=== PATIENT | female | born 1950 | race Caucasian/White ===

== ENCOUNTER → 2017-08-13 | Outpatient (CLI) | payer MEDICARE, OTHER ==
[~2017-08-13] MED LIST: ALLOPURINOL; ASPI81CH PO; ATOR10 PO; CELE100 PO; Excedrin Extra1 EACH PO; FAMO20 PO; GABA100 PO; INDO50 PO; MELA3 PO; METO25ER; NIAC500ER PO; TRAM50 PO; VALS80 PO; [UNRECOGNIZED DRUG - REMARK]
== END ==
LOC: LAB SHORT 14:43 → PLD 14:43
DX: D22.39 Melanocytic nevi of other parts of face (principal)
CPT/HCPCS: 88305

== ENCOUNTER → 2017-08-23 | Outpatient (CLI) | payer MEDICARE, OTHER ==
[2017-08-23 15:40] LABS: Albumin, Blood 3.9 g/dL (3.4-5.0); Albumin/Globulin Ratio 1.1 (0.8-1.8); Bilirubin, Total 0.9 mg/dL (0.1-1.0); Bun/Creatinine Ratio 23.1 (12.0-20.0); Calcium, Blood 9.5 mg/dL (8.5-10.1); Creatinine, Blood 1.3 mg/dL (0.40-1.00); Globulin, Blood 3.5 g/dL (2.2-4.0); Potassium, Blood 3.6 mmol/L (3.5-5.5); Total Protein, Blood 7.4 g/dL (6.4-8.2)
== END ==
LOC: LAB EV 15:25 → LAB SHORT 15:25
PROVIDERS: Physician Assistant
DX: M45.9 Ankylosing spondylitis of unspecified sites in spine (principal)
CPT/HCPCS: 80053

== ENCOUNTER → 2018-08-13 | Outpatient (CLI) | payer MEDICARE, OTHER ==
[~2018-08-13] MED LIST changes: +ALBU90OI INH; +ALLO300 PO; +DICL75ER PO; +Estrace Vagin42.5 GM VAG; +Multivitamin1 EAC1 PO; +OLMSRTN-AMLDPN1 EAC3 PO; +TUMERIC PO; +UBID10
== END | disposition home or self-care (01) ==
LOC: PLD 14:09 → LAB SHORT 14:09
DX: D22.5 Melanocytic nevi of trunk (principal)
CPT/HCPCS: 88305

== ENCOUNTER 2019-10-05 22:19 | Emergency (ER) | payer MEDICARE, OTHER ==
[~2019-10-05] VITALS: Ht 162.6 cm; Wt 80.3 kg
[2019-10-05 22:35] LABS: BASOPHILS ABSOLUTE AUTO 0.04 K/mm3 (0.00-0.23); BASOPHILS PERCENT AUTO 1 % (0-2); EOSINOPHILS ABSOLUTE AUTO 0.19 K/mm3 (0.00-0.68); EOSINOPHILS PERCENT AUTO 2 % (0-6); Hematocrit 35.8 % (33.0-51.0); Hemoglobin 11.9 g/dL (11.5-16.0); IMMATURE GRAN ABSOLUTE AUTO 0.02 K/mm3 (0.00-0.10); IMMATURE GRAN PERCENT AUTO 0 % (0-1); LYMPHOCYTES ABSOLUTE AUTO 2.59 K/mm3 (0.84-5.20); LYMPHOCYTES PERCENT AUTO 32 % (21-46); MONOCYTES ABSOLUTE AUTO 1.04 K/mm3 (0.16-1.47); MONOCYTES PERCENT AUTO 13 % (4-13); Mean Corpuscular HGB 31.6 pg (26.0-34.0); Mean Corpuscular HGB Conc 33.2 g/dL (31.5-36.5); Mean Corpuscular Volume 95 fL (80-100); Mean Platelet Volume 9.1 fL (9.1-12.4); NEUTROPHILS ABSOLUTE AUTO 4.17 K/mm3 (1.96-9.15); NEUTROPHILS PERCENT AUTO 52 % (41-73); Platelet Count 278 K/mm3 (150-400); RDW Coefficient Variation 12.7 % (11.7-14.2); RDW Standard Deviation 43.8 fL (35.1-46.3); Red Blood Cell Count 3.76 M/mm3 (3.80-5.20); White Blood Cell Count 8.05 K/mm3 (4.00-11.30)
[2019-10-05 22:56] LABS: Alanine Aminotransfer (ALT/SGP 63 U/L (12-78); Albumin/Globulin Ratio 1.2 (0.8-1.8); Alk Phos 77 U/L (50-136); Anion Gap 6 mmol/L (6-16); Aspartate Aminotrans (AST/SGOT 53 U/L (12-37); Bilirubin, Total 0.6 mg/dL (0.1-1.0); Blood Urea Nitrogen 18 mg/dL (8-24); Bun/Creatinine Ratio 13.6 (12.0-20.0); CO2, Blood 27 mmol/L (21-32); Calcium, Blood 8.6 mg/dL (8.5-10.1); Chloride, Blood 102 mmol/L (98-108); Creatinine, Blood 1.32 mg/dL (0.40-1.00); Globulin, Blood 3.3 g/dL (2.2-4.0); Glomerular Filtration Rate 42 (60-); Glucose, Blood 98 mg/dL (70-99); Sodium, Blood 135 mmol/L (136-145); Total Protein, Blood 7.3 g/dL (6.4-8.2); Troponin I <0.015 ng/mL (0.000-0.040)
== END 2019-10-06 00:30 | disposition home or self-care (01) ==
LOC: ER 22:19
PROVIDERS: Emergency Medicine
DX: I47.1 Supraventricular tachycardia (principal); Z88.8 Allergy status to other drugs, medicaments and biological substances; Z79.899 Other long term (current) drug therapy; I10 Essential (primary) hypertension; E78.5 Hyperlipidemia, unspecified; K21.9 Gastro-esophageal reflux disease without esophagitis; M10.9 Gout, unspecified; J45.909 Unspecified asthma, uncomplicated
CPT/HCPCS: 36415; 71045; 80053; 84484; 85025; 93005; 93010; 96360; 99285-25; J7030

== ENCOUNTER 2019-11-05 07:16 | Day surgery (SDC) | payer MEDICARE, OTHER ==
--- NOTE | 2019-11-05 08:57 | NUR ---
DISCHARGE SUMMARY Patient up to Ambulate independently. Gait steady. Discharge instructions reviewed with patient. Patient verbalizes understanding. Copy given to patient to take home. IV DC'D. PT DECLINED WC AND AMBULATED INDEPENDENTLY OUT FOR RIDE HOME WITH FRIEND. VEE PO JUICE.
== END 2019-11-05 22:38 | disposition home or self-care (01) ==
LOC: ORD 07:16 → CT 07:16 → ORD 07:30 → CT 08:00 → ORD 22:38
DX: I20.8 Other forms of angina pectoris (principal); R06.02 Shortness of breath; M45.9 Ankylosing spondylitis of unspecified sites in spine; I10 Essential (primary) hypertension; E78.00 Pure hypercholesterolemia, unspecified; Z88.8 Allergy status to other drugs, medicaments and biological substances; Z79.899 Other long term (current) drug therapy
CPT/HCPCS: 75574; Q9967

== ENCOUNTER → 2019-11-19 | Outpatient (CLI) | payer MEDICARE, OTHER | END | disposition home or self-care (01) | LOC: LAB EV 12:45 → LAB SHORT 12:45 | DX: J02.9 Acute pharyngitis, unspecified (principal); Z20.828 Contact with and (suspected) exposure to other viral communicable diseases | CPT/HCPCS: 87081; U0003 ==

== ENCOUNTER 2020-05-15 13:22 | Day surgery (SDC) | payer MEDICARE, OTHER ==
[~2020-05-15] VITALS: Ht 162.6 cm; Wt 78.6 kg
[~2020-05-15 13:22] MED LIST changes: +ACET325 PO; +BIOTIN1 MG; +COQ-10100 MG PO; +ERGO400; +FISH OIL 1,2001 EAC7; +Fibercon625 MG PO; +HYDR1TAB94 PO; +HYDSUL200 PO; +MAGNESIUM OXID500 MG; +MULTIPLE VITAM1 EACH PO; +NEURONTIN600 MG PO; +OLME20 PO; +TOPROL XL25 MG PO; +TUMERIC; +Ventolin/Prove6.7 GM INH
--- NOTE | 2020-05-15 13:54 | NUR ---
05/15/20 1354 ESPERANZA BALES ONE ATTEMPT BY VERNA IN UNSUCCESFUL MISSED ONE ATTEMPT BY RN IN UNSUCCESSFUL MISSED
== END 2020-05-15 15:44 | disposition home or self-care (01) ==
LOC: ORSCSDS 13:22
PROVIDERS: Internal Medicine Gastroenterology
PROC: 0DB98ZX Excision of Duodenum, Via Natural or Artificial Opening Endoscopic, Diagnostic (ICD-10-PCS; principal; 2020-05-15 14:30)
PROC: 0DB78ZX Excision of Stomach, Pylorus, Via Natural or Artificial Opening Endoscopic, Diagnostic (ICD-10-PCS; principal; 2020-05-15 14:30)
DX: R10.13 Epigastric pain (principal); K29.70 Gastritis, unspecified, without bleeding; I10 Essential (primary) hypertension; N18.9 Chronic kidney disease, unspecified; M06.9 Rheumatoid arthritis, unspecified; E78.5 Hyperlipidemia, unspecified; K76.0 Fatty (change of) liver, not elsewhere classified; Z79.899 Other long term (current) drug therapy
CPT/HCPCS: 87081; 88305; 88342; J2704; J7120

== ENCOUNTER 2021-08-14 13:07 | Day surgery (SDC) | payer MEDICARE, OTHER ==
[~2021-08-14] VITALS: Ht 162.6 cm; Wt 82.5 kg
--- NOTE | 2021-08-14 13:42 | NUR ---
08/14/21 1342 Mary Raza TETRACAINE ADMINISTERED AT 1322, PLEDGETT 1325 BY [facility].DANIELLE.
== END 2021-08-14 15:00 | disposition home or self-care (01) ==
LOC: ORSCSDS 13:07
PROVIDERS: Ophthalmology
PROC: 08RJ3JZ Replacement of Right Lens with Synthetic Substitute, Percutaneous Approach (ICD-10-PCS; principal; 2021-08-14 14:00)
DX: H25.13 Age-related nuclear cataract, bilateral (principal); M45.9 Ankylosing spondylitis of unspecified sites in spine; E78.5 Hyperlipidemia, unspecified; I10 Essential (primary) hypertension; R00.0 Tachycardia, unspecified; E66.9 Obesity, unspecified; Z68.31 Body mass index [BMI] 31.0-31.9, adult; Z79.899 Other long term (current) drug therapy
CPT/HCPCS: J2250; J3010; J3301; J7040; V2632

== ENCOUNTER 2021-08-30 12:05 | Day surgery (SDC) | payer MEDICARE, OTHER ==
[~2021-08-30] VITALS: Ht 162.6 cm; Wt 81.6 kg
[2021-08-30] MEDS ORDERED: Cymbalta20 MG PO (13:07)
--- NOTE | 2021-08-30 13:10 | NUR ---
08/30/21 1310 Kimberlee Morris CALL LIGHT WITHIN REACH.
== END 2021-08-30 15:15 | disposition home or self-care (01) ==
LOC: ORSCSDS 12:05
PROVIDERS: Ophthalmology
PROC: 08RK3JZ Replacement of Left Lens with Synthetic Substitute, Percutaneous Approach (ICD-10-PCS; principal; 2021-08-30 13:30)
DX: H25.12 Age-related nuclear cataract, left eye (principal); I10 Essential (primary) hypertension; K21.9 Gastro-esophageal reflux disease without esophagitis; K76.0 Fatty (change of) liver, not elsewhere classified; J45.909 Unspecified asthma, uncomplicated; E78.5 Hyperlipidemia, unspecified; Z79.899 Other long term (current) drug therapy
CPT/HCPCS: J2001; J2250; J3010; J3301; J7040; V2632

== ENCOUNTER → 2022-12-30 | Outpatient (CLI) | payer MEDICARE, OTHER ==
[~2022-12-30] MED LIST changes: +Cymbalta20 MG PO
[2022-12-31 11:10] LABS: Stool Occult Bld Immuno 1 Negative (NEGATIVE); Stool Occult Bld Immuno 2 Negative (NEGATIVE)
== END ==
LOC: LAB SHORT 10:40 → LAB 10:40 → LAB SHORT 11:17 → EDSTATUS 12-20 11:00 → LAB FUT 12-20 11:00
PROVIDERS: Internal Medicine Gastroenterology
DX: Z12.11 Encounter for screening for malignant neoplasm of colon (principal)
CPT/HCPCS: G0328

== ENCOUNTER 2023-08-04 10:10 | Inpatient (IN) | payer MEDICARE, OTHER ==
[~2023-08-04] VITALS: Ht 160 cm; Wt 77.1 kg
[~2023-08-04 10:10] MED LIST changes: -BIOTIN1 MG; +BIOTIN1 MG PO; +BREO ELLIPTA 11 EAC1; +CALCIUM CITRAT1 EA10; -ERGO400; +ERGO400 PO; -Fibercon625 MG PO; +GABA300 PO; +LATANOPROST2.5 M3 BOTHEYES; -MAGNESIUM OXID500 MG; +MAGNESIUM OXID500 MG PO; +RELIEF FACTOR PO; +TIMO.5OPSO BOTHEYES; +Vitamin B Comple1 EA PO
[2023-08-04] MEDS ORDERED: FentaNYL Citrate 50 MCG/ML 2 ML Injection IV PRN ×2 (11:30→13:55)
[2023-08-04] MEDS ORDERED: OxyCODONE HCL 5 MG TAB PO PRN (13:50)
[2023-08-04] MEDS ORDERED: Acetaminophen 325 MG TABLET PO PRN (13:55)
[2023-08-04] MEDS ORDERED: Mometasone/Formoterol MDI 100/5 mcg 13 GM INH SCH (14:25)
[2023-08-04] MEDS ORDERED: HYDROmorphone HCl/Pf 1MG SYR IV PRN (16:40)
[2023-08-04 16:48] VITALS: BP 151/65
[2023-08-04 16:51] VITALS: BP 151/65
--- NOTE | 2023-08-04 17:52 | NUR ---
ARRIVAL TO UNIT PT ARRIVED TO UNIT FROM ER VIA GURNEY. TRANSFERED WITH SLIDE SHEET. PT REPORTS PAIN AT 5/10 TOLERABLE WITH MINIMAL MOVEMENT. PUREWICK IN PLACE. PT LEFT HIP IS HOT TO TOUCH, SWOLLEN BUT NO PITTING EDEMA NOTED. PT REPORTS HEAT SINCE FALL. SITTING UP IN BED AND EATING DINNER AT THIS TIME. PT CAN WIGGLE TOES AND DENIES ANY NUMBNESS OR TINGLING. AQUACELS TO L HIP REMAIN CDI. PATIENT LAST CHANGED THEM ON FRIDAY
[2023-08-04 19:48] VITALS: BP 124/69
[2023-08-04] MEDS ORDERED: Sennosides 8.6 MG Tab PO SCH (21:00)
[2023-08-04] MEDS ORDERED: Atorvastatin 10 MG Tab PO SCH (21:00)
[2023-08-04] MEDS ORDERED: Metoprolol Succinate 25 MG TABCR PO SCH (21:00)
[2023-08-04] MEDS ORDERED: Latanoprost 0.005% Opth Soln 2.5 ML BOTHEYES SCH (21:00)
[2023-08-04] MEDS ORDERED: Melatonin 5 MG Tablet PO SCH (21:00)
[2023-08-05] VITALS (20 sets, daily range): BP systolic 94–150; BP diastolic 55–110
[2023-08-05 05:23] LABS: BASOPHILS ABSOLUTE AUTO 0.06 K/mm3 (0.00-0.23); BASOPHILS PERCENT AUTO 1 % (0-2); EOSINOPHILS ABSOLUTE AUTO 0.17 K/mm3 (0.00-0.68); EOSINOPHILS PERCENT AUTO 1 % (0-6); Hematocrit 32.7 % (33.0-51.0); Hemoglobin 10.9 g/dL (11.5-16.0); IMMATURE GRAN ABSOLUTE AUTO 0.09 K/mm3 (0.00-0.10); IMMATURE GRAN PERCENT AUTO 1 % (0-1); LYMPHOCYTES ABSOLUTE AUTO 2.69 K/mm3 (0.84-5.20); LYMPHOCYTES PERCENT AUTO 20 % (21-46); MONOCYTES ABSOLUTE AUTO 1.17 K/mm3 (0.16-1.47); MONOCYTES PERCENT AUTO 9 % (4-13); Mean Corpuscular HGB 33.4 pg (26.0-34.0); Mean Corpuscular HGB Conc 33.3 g/dL (31.5-36.5); Mean Corpuscular Volume 100 fL (80-100); Mean Platelet Volume 8.4 fL (9.1-12.4); NEUTROPHILS ABSOLUTE AUTO 9.03 K/mm3 (1.96-9.15); NEUTROPHILS PERCENT AUTO 68 % (41-73); Platelet Count 477 K/mm3 (150-400); RDW Coefficient Variation 13.2 % (11.7-14.2); RDW Standard Deviation 48.5 fL (35.1-46.3); Red Blood Cell Count 3.26 M/mm3 (3.80-5.20); White Blood Cell Count 13.21 K/mm3 (4.00-11.30)
[2023-08-05 05:29] LABS: Bun/Creatinine Ratio 22.5 (12.0-20.0); Calcium, Blood 9.4 mg/dL (8.5-10.1); Creatinine, Blood 0.71 mg/dL (0.40-1.00); Potassium, Blood 4.2 mmol/L (3.5-5.5)
--- NOTE | 2023-08-05 05:44 | NUR ---
SHIFT SUMMARY NO ACUTE CHANGES. PT NPO SINCE MIDNIGHT FOR POSSIBLE PROCEDURE. DILAUDID + 1 PAIN PILL FOR PAIN CONTROL. PUREWICK IN PLACE TO VOID. REPOSITIONING PRN FOR COMFORT. VSS. USES CALL LIGHT APPROPRIATELY.
[2023-08-05] MEDS ORDERED: Lactated Ringer's 1,000 ML IV SCH ×3 (08:00→19:35)
[2023-08-05] MEDS ORDERED: Magnesium Oxide 400 MG Tab PO SCH (09:00)
[2023-08-05] MEDS ORDERED: Allopurinol 300 MG Tab PO SCH (09:00)
[2023-08-05] MEDS ORDERED: Cholecalciferol 400 unit Tab PO SCH (09:00)
[2023-08-05] MEDS ORDERED: Timolol 0.5% Opth Soln 5 ML BOTHEYES SCH (09:00)
[2023-08-05] MEDS ORDERED: Gabapentin 300 MG Cap PO SCH (09:00)
[2023-08-05] MEDS ORDERED: COENZYME Q10 100 MG PO SCH (09:00)
[2023-08-05] MEDS ORDERED: Ondansetron HCl 2 MG / ML 2ML Vial IV PRN ×2 (11:00→19:30)
[2023-08-05 12:41] LABS: BASOPHILS ABSOLUTE AUTO 0.04 K/mm3 (0.00-0.23); BASOPHILS PERCENT AUTO 0 % (0-2); EOSINOPHILS ABSOLUTE AUTO 0.12 K/mm3 (0.00-0.68); EOSINOPHILS PERCENT AUTO 1 % (0-6); Hematocrit 32.9 % (33.0-51.0); Hemoglobin 11.2 g/dL (11.5-16.0); IMMATURE GRAN ABSOLUTE AUTO 0.11 K/mm3 (0.00-0.10); IMMATURE GRAN PERCENT AUTO 1 % (0-1); LYMPHOCYTES PERCENT AUTO 9 % (21-46); MONOCYTES ABSOLUTE AUTO 1.14 K/mm3 (0.16-1.47); MONOCYTES PERCENT AUTO 7 % (4-13); Mean Corpuscular HGB 33.5 pg (26.0-34.0); Mean Corpuscular Volume 99 fL (80-100); Mean Platelet Volume 8.4 fL (9.1-12.4); NEUTROPHILS ABSOLUTE AUTO 13.13 K/mm3 (1.96-9.15); NEUTROPHILS PERCENT AUTO 82 % (41-73); Platelet Count 453 K/mm3 (150-400); RDW Coefficient Variation 13.2 % (11.7-14.2); RDW Standard Deviation 46.9 fL (35.1-46.3); Red Blood Cell Count 3.34 M/mm3 (3.80-5.20); White Blood Cell Count 16.04 K/mm3 (4.00-11.30)
[2023-08-05] MEDS ORDERED: Ropivacaine 0.5% HCl/Pf 123.125 MG,EPINEPHrine HCL 0.25 MG,Ketorolac Tromethamine 15 MG... INFIL SCH (14:45)
[2023-08-05] MEDS ORDERED: Vancomycin HCL 1,000 MG in NS 100 ML IV SCH (14:45)
[2023-08-05] MEDS ORDERED: CeFAZolin Sodium 2,000 MG in NS 100 ML IV SCH (14:45)
[2023-08-05] MEDS ORDERED: Tranexamic Acid 100 ML IV SCH (14:46)
[2023-08-05] MEDS ORDERED: Ketorolac Tromethamine 30mg Vial ONE (15:32)
[2023-08-05] MEDS ORDERED: Dexamethasone Sod Phos 10 MG/ML 1ML VIAL ONE (15:32)
[2023-08-05] MEDS ORDERED: propofoL 20 ML IV ONE (15:32)
[2023-08-05] MEDS ORDERED: Ondansetron HCl 2 MG / ML 2ML Vial ONE (15:32)
[2023-08-05] MEDS ORDERED: FentaNYL Citrate 50 MCG/ML 2 ML Injection ONE ×2 (15:32→19:50)
--- NOTE | 2023-08-05 19:15 | NUR ---
shift summary pt npo for procedure, left for procedure around 1430. pain controlled per emar prior. notified physician of bruising beneath knee around chao and calf. pt denied pain in lle beneath knee. family at bedside. report given to oncoming night rn.
[2023-08-05] MEDS ORDERED: Metoclopramide HCl 5MG / ML 2ML Vial IV PRN (19:30)
[2023-08-05] MEDS ORDERED: Magnesium Hydroxide Conc 10 ML UDC PO PRN (19:30)
[2023-08-05] MEDS ORDERED: OxyCODONE HCL 5 MG TAB PO PRN ×2 (19:35→19:40)
[2023-08-05] MEDS ORDERED: Prochlorperazine Edisylate 10 mg Vial IV PRN (19:35)
[2023-08-05] MEDS ORDERED: HYDROmorphone HCl/Pf 1MG SYR IV PRN (19:35)
[2023-08-05] MEDS ORDERED: Promethazine HCl 25 MG Tab PO PRN (19:35)
[2023-08-05] MEDS ORDERED: DiphenhydrAMINE HCL 25 MG Cap PO PRN (19:35)
[2023-08-05] MEDS ORDERED: Bisacodyl 10 MG Supp PR PRN (19:40)
[2023-08-05] MEDS ORDERED: Ketorolac Tromethamine 15mg Vial IV SCH (19:55)
[2023-08-05] MEDS ORDERED: Apixaban 5 MG Tab PO SCH (21:00)
[2023-08-05] MEDS ORDERED: Docusate Sodium 100 MG Cap PO SCH (21:00)
[2023-08-06] MEDS ORDERED: Acetaminophen 500 MG Tab PO SCH
[2023-08-06] MEDS ORDERED: CeFAZolin Sodium 2,000 MG in NS 100 ML IV SCH
[2023-08-06 03:42] VITALS: BP 113/66
--- NOTE | 2023-08-06 05:56 | NUR ---
SHIFT SUMMARY POD 1 L HIP REVISION + ORIF. DRESSINGS REMAIN CDI. PT COMPLAINED OF LEFT KNEE PAIN AT START OF SHIFT, LLE STRAIGHTENED OUT AND REPOSITIONED ON PILLOW WITH ICE AND PT HAS NOT HAD PAIN TO THE L KNEE SINCE. 2 ROXICODONE FOR PAIN MANAGEMENT. VEE PO. PUREWICK IN PLACE BUT NO VOID. BLADDER SCAN 442. PT REQUESTS TO GET UP TO BSC AFTER PAIN MEDICAIION TAKES EFFECT TO TRY TO VOID. PT DECLINES STRAIGHT CATH. VSS. PT USES CALL LIGHT APPROPRIATELY.
[2023-08-06 07:22] VITALS: BP 140/70
[2023-08-06 08:01] LABS: BASOPHILS ABSOLUTE AUTO 0.04 K/mm3 (0.00-0.23); BASOPHILS PERCENT AUTO 0 % (0-2); EOSINOPHILS PERCENT AUTO 0 % (0-6); Hematocrit 24.9 % (33.0-51.0); Hemoglobin 8.2 g/dL (11.5-16.0); IMMATURE GRAN PERCENT AUTO 1 % (0-1); LYMPHOCYTES ABSOLUTE AUTO 1.37 K/mm3 (0.84-5.20); LYMPHOCYTES PERCENT AUTO 6 % (21-46); MONOCYTES PERCENT AUTO 4 % (4-13); Mean Corpuscular HGB 33.1 pg (26.0-34.0); Mean Corpuscular HGB Conc 32.9 g/dL (31.5-36.5); Mean Corpuscular Volume 100 fL (80-100); Mean Platelet Volume 8.6 fL (9.1-12.4); NEUTROPHILS ABSOLUTE AUTO 20.12 K/mm3 (1.96-9.15); NEUTROPHILS PERCENT AUTO 89 % (41-73); Platelet Count 423 K/mm3 (150-400); RDW Coefficient Variation 13.1 % (11.7-14.2); RDW Standard Deviation 47.5 fL (35.1-46.3); Red Blood Cell Count 2.48 M/mm3 (3.80-5.20); White Blood Cell Count 22.63 K/mm3 (4.00-11.30)
[2023-08-06 08:10] LABS: Bun/Creatinine Ratio 28.2 (12.0-20.0); Calcium, Blood 8.5 mg/dL (8.5-10.1); Creatinine, Blood 0.85 mg/dL (0.40-1.00); Potassium, Blood 4.2 mmol/L (3.5-5.5)
[2023-08-06 08:25] LABS: BASOPHILS PERCENT MAN 0 % (0-2); EOSINOPHILS PERCENT MAN 0 % (0-6); LYMPHOCYTES PERCENT MAN 4 % (21-46); MONOCYTES ABSOLUTE MAN 1.13 K/mm3 (0.16-1.47); MONOCYTES PERCENT MAN 5 % (4-13); NEUTROPHILS ABSOLUTE MAN 20.59 K/mm3 (1.96-9.15); SEG NEUTROPHILS PERCENT MAN 91 % (41-73); TOTAL CELLS COUNTED 100
[2023-08-06] MEDS ORDERED: Cholecalciferol 1000 Unit Tablet (=25MCG) PO SCH (09:00)
[2023-08-06 14:36] VITALS: BP 102/50
--- NOTE | 2023-08-06 17:16 | NUR ---
SHIFT SUMMARY: POD 1 LEFT HIP REVISION WITH ORIF PATIENT IS A&OX4. VS ARE WNL AND IS ON RA. PAIN IS MANAGED WITH PO PAIN MEDS. HER LEFT HIP HAS AN AQUACEL DRESSING X2 THAT ARE C/D/I. DENIES NUMBNESS OR TINGLING THROUGHOUT ALL EXTREMITIES. CAN MOVE ALL FINGERS AND TOES WHEN ASKED. SHE IS A SBA WITH FWW AND GAIT BELT. SHE IS TOLERATING PO INTAKE AND IS VOIDING. PATIENT IS LAYING IN THE RECLINER CHAIR WITH LEGS ELEVATED AND CALL LIGHT IN REACH. PATIENT CALLS APPROPRIATELY.
[2023-08-06 20:13] VITALS: BP 104/52
--- NOTE | 2023-08-07 04:21 | NUR ---
SHIFT SUMMARY POD 2 ORIF OF L HIP PT ABLE TO REST DURING THE NIGHT. PAIN MANAGED PER EMAR. PT WEARING HOME CPAP, NO BLEED IN O2. PT SATS WOULD DROP TO LOW 80'S HIGH 70'S. COMMUNICATED TO RT, CAME AND PUT BLEED IN O2. PT CURRENTLY AT 6L BLEED IN TO KEEP SATS ABOVE 90%. PT ABLE TO TRANSFER WITH 1P FWW AND GB. PT 50% WB ON THAT L LEG. AQUACEL TO L HIP HAS SLIGHT SHADOWING TO IT, BUT STILL DRY AND INTACT. VSS. NO OTHER COCERNS AT THIS TIME, CALL LIGHT WITHIN REACH
[2023-08-07 05:47] VITALS: BP 107/60
[2023-08-07 07:27] VITALS: BP 100/52
[2023-08-07 07:46] LABS: Bun/Creatinine Ratio 34.1 (12.0-20.0); Creatinine, Blood 0.79 mg/dL (0.40-1.00)
[2023-08-07 09:18] LABS: BASOPHILS ABSOLUTE AUTO 0.06 K/mm3 (0.00-0.23); BASOPHILS PERCENT AUTO 0 % (0-2); EOSINOPHILS ABSOLUTE AUTO 0.21 K/mm3 (0.00-0.68); EOSINOPHILS PERCENT AUTO 1 % (0-6); Hematocrit 21.8 % (33.0-51.0); Hemoglobin 7.5 g/dL (11.5-16.0); IMMATURE GRAN ABSOLUTE AUTO 0.14 K/mm3 (0.00-0.10); IMMATURE GRAN PERCENT AUTO 1 % (0-1); LYMPHOCYTES ABSOLUTE AUTO 1.53 K/mm3 (0.84-5.20); LYMPHOCYTES PERCENT AUTO 10 % (21-46); MONOCYTES ABSOLUTE AUTO 0.48 K/mm3 (0.16-1.47); MONOCYTES PERCENT AUTO 3 % (4-13); Mean Corpuscular HGB 34.7 pg (26.0-34.0); Mean Corpuscular HGB Conc 34.4 g/dL (31.5-36.5); Mean Corpuscular Volume 101 fL (80-100); Mean Platelet Volume 8.8 fL (9.1-12.4); NEUTROPHILS ABSOLUTE AUTO 13.18 K/mm3 (1.96-9.15); NEUTROPHILS PERCENT AUTO 85 % (41-73); Platelet Count 390 K/mm3 (150-400); RDW Coefficient Variation 13.2 % (11.7-14.2); RDW Standard Deviation 47.7 fL (35.1-46.3); Red Blood Cell Count 2.16 M/mm3 (3.80-5.20)
--- NOTE | 2023-08-07 11:27 | NUR ---
Pt. is resting in her recliner but responds when I enter the room. Pt. is pleasant. Facilitated a life and health review. Pt. verbalized the circumstances regarding her previous surgery, re-admission, and most recent surgery. Listen with empathy and a calming presence. Rapport is established when we began talking about her family and common relationships in the community. Pts. daughter arrived. Prayed with Pt. Pt. verbalized gratitude for the spiritual care visit.
[2023-08-07 15:50] VITALS: BP 123/57
--- NOTE | 2023-08-07 16:59 | NUR ---
08/07/23 1659 Denia Aparicio VERIFICATIONS: EDIT CHART.
--- NOTE | 2023-08-07 17:19 | NUR ---
SHIFT SUMMARY POD 2 L HIP ORIF. NO ACUTE CHANGES THIS SHIFT. VSS, 2L O2 VIA NC PRN TO MAINTAIN SAT >90%. TOLEATING ORALS. VOIDING. AMBULATES USING FWW c GB & 1 PERSON ASSIST. AQUACEL C/D/I. PT REPORTS PAIN TOLERABLE, MEDICATED PER EMAR. DR PAYNE [facility] PRIOR TO D/C, ORTHO CLEARED PT TO DC. ANTICIPATED D/C TO SNF TOMORROW. CALL [facility] IN [place] AT BEDSIDE, WILL REPORT TO PATRIA RAMESH.
[2023-08-07 20:22] VITALS: BP 109/57
[2023-08-08 04:23] VITALS: BP 151/68
--- NOTE | 2023-08-08 04:25 | NUR ---
SHIFT SUMMARY POD3 ORIF OF L HIP. AQUACEL DRESSINGS HAVE SOME SHADOWING NOTED, HAS NOT REQUIRED A DRESSING CHANGE. SENSATION AND CIRCULATION REMAIN INTACT IN LLE. VSS. PT SLEPT ON AND OFF T/O THE NIGHT. MEDICATED FOR PAIN WITH OXY AND TYLENOL W/TOLLERABLE RESULTS. PT AMBULATING TO THE BATHROOM W/MIN ASSIST, MAINTAINING 50% WBS. TOLLERATING PO W/O N/V. OVERALL NO ACUTE EVENTS NOTED. PLAN TO ASSESS LABS THIS AM TO HELP DETERMINE DIRECTION OF CARE.
[2023-08-08 06:08] LABS: BASOPHILS ABSOLUTE AUTO 0.04 K/mm3 (0.00-0.23); BASOPHILS PERCENT AUTO 0 % (0-2); EOSINOPHILS ABSOLUTE AUTO 0.36 K/mm3 (0.00-0.68); EOSINOPHILS PERCENT AUTO 3 % (0-6); Hematocrit 21.8 % (33.0-51.0); Hemoglobin 7.3 g/dL (11.5-16.0); IMMATURE GRAN ABSOLUTE AUTO 0.19 K/mm3 (0.00-0.10); IMMATURE GRAN PERCENT AUTO 1 % (0-1); LYMPHOCYTES ABSOLUTE AUTO 1.83 K/mm3 (0.84-5.20); LYMPHOCYTES PERCENT AUTO 13 % (21-46); MONOCYTES ABSOLUTE AUTO 1.18 K/mm3 (0.16-1.47); MONOCYTES PERCENT AUTO 8 % (4-13); Mean Corpuscular HGB 33.5 pg (26.0-34.0); Mean Corpuscular HGB Conc 33.5 g/dL (31.5-36.5); Mean Corpuscular Volume 100 fL (80-100); Mean Platelet Volume 8.7 fL (9.1-12.4); NEUTROPHILS ABSOLUTE AUTO 10.46 K/mm3 (1.96-9.15); NEUTROPHILS PERCENT AUTO 74 % (41-73); NRBC ABSOLUTE 0.03 K/mm3 (0.00-0.02); NRBC Auto 0.2 /100 WBC (0.0-0.2); Platelet Count 405 K/mm3 (150-400); RDW Coefficient Variation 13.3 % (11.7-14.2); RDW Standard Deviation 48.5 fL (35.1-46.3); Red Blood Cell Count 2.18 M/mm3 (3.80-5.20); White Blood Cell Count 14.06 K/mm3 (4.00-11.30)
[2023-08-08 06:37] LABS: Bun/Creatinine Ratio 30.7 (12.0-20.0); Calcium, Blood 8.5 mg/dL (8.5-10.1); Creatinine, Blood 0.65 mg/dL (0.40-1.00)
[2023-08-08 07:06] VITALS: BP 113/60
[2023-08-08] MEDS ORDERED: Fluconazole 100 MG Tab PO ONE (09:40)
[2023-08-08] MEDS ORDERED: Nystatin 100,000 Unit/ML Susp 5 ML UDC MT SCH (09:42)
[2023-08-08 13:30] LABS: Hematocrit 22.2 % (33.0-51.0); Hemoglobin 7.6 g/dL (11.5-16.0)
--- NOTE | 2023-08-08 15:28 | NUR ---
DISCHARGE NOTE: PATIENT IS BEING DISCHARGED TO [facility] TODAY. THIS NURSE JUST GAVE REPORT TO RAYMOND RAMESH FROM [facility]. AFTER REPORT WAS GIVEN RAYMOND RAMESH HAD NO FURTHER QUESTIONS AT THIS TIME. PAIN IS MANAGED WITH PO PAIN MEDS. SHE HAS X2 AQUACELS WITH LIGHT SHADOWING NOTED BUT ARE STILL INTACT. PATIENT DENIES NUMBNESS OR TINGLING THROUGHOUT ALL EXTREMITIES. SHE IS A SBA WITH FWW AND GAIT BELT. SHE IS TOLERATING PO INTAKE AND IS VOIDING/HAVING BMS. PATIENT HAS PERSONAL ITEMS IN THE ROOM GATHERED AND IS GETTING DRESSED IN HER PERSONAL CLOTHES. PATIENTS SISTER AND NIECE HAVE BEEN NOTIFIED OF PATIENT DISCHARGING TO [facility]. AWAITING FOR TRANSPORT TO ARRIVE TO TAKE HER TO [facility].
[2023-08-08 16:21] LABS: Influenza A, PCR NEGATIVE (NEGATIVE); Influenza B, PCR NEGATIVE (NEGATIVE); Resp Syncytial Virus, PCR NEGATIVE (NEGATIVE); SARS-Cov-2 (COVID-19) PCR, MMC NEGATIVE (NEGATIVE)
[2023-08-08] MEDS ORDERED: COENZYME Q10100 MG PO (16:26)
[2023-08-08] MEDS ORDERED: ELIQUIS2.5 MG PO (16:28)
[2023-08-08] MEDS ORDERED: SENN187 PO (16:28)
[2023-08-08] MEDS ORDERED: OXYC10TA19 PO (16:28)
[2023-08-08] MEDS ORDERED: DOCU100 PO (16:30)
--- NOTE | 2023-08-08 17:42 | NUR ---
TRANSPORT ARRIVED TO TAKE THE PATIENT TO [facility] IN A WHEELCHAIR. PATIENT HAS ALL PERSONAL BELONGINGS IN THE ROOM GATHERED.
== END 2023-08-08 17:40 | DRG 467 ==
LOC: ER 10:10 → SURS 13:49
PROVIDERS: Internal Medicine; Orthopaedic Surgery; ADMIT Family Medicine
PROC: 0SRU0JZ Replacement of Left Knee Joint, Femoral Surface with Synthetic Substitute, Open Approach (ICD-10-PCS; 2023-08-05)
PROC: 0SPU0JZ Removal of Synthetic Substitute from Left Knee Joint, Femoral Surface, Open Approach (ICD-10-PCS; principal; 2023-08-05 13:30)
DX: S72.22XA Displaced subtrochanteric fracture of left femur, initial encounter for closed fracture (principal); D62 Acute posthemorrhagic anemia; M97.02XA Periprosthetic fracture around internal prosthetic left hip joint, initial encounter; I47.10 Supraventricular tachycardia, unspecified; W18.30XA Fall on same level, unspecified, initial encounter; J44.9 Chronic obstructive pulmonary disease, unspecified; I12.9 Hypertensive chronic kidney disease with stage 1 through stage 4 chronic kidney disease, or unspecified chronic kidney disease; M10.9 Gout, unspecified; E78.5 Hyperlipidemia, unspecified; N18.31 Chronic kidney disease, stage 3a; K75.81 Nonalcoholic steatohepatitis (NASH); Z90.49 Acquired absence of other specified parts of digestive tract; Z90.89 Acquired absence of other organs; Z66 Do not resuscitate; Z98.890 Other specified postprocedural states; Z88.2 Allergy status to sulfonamides; Z88.5 Allergy status to narcotic agent; Z88.8 Allergy status to other drugs, medicaments and biological substances; Z79.899 Other long term (current) drug therapy; M25.552 Pain in left hip
CPT/HCPCS: 0241U; 36415; 72170; 72192; 73502; 76377; 80048; 82607; 82728; 82746; 83540; 83550; 85014; 85018; 85025; 93005; 93010; 94640; 94664; 94762; 96374; 96376; 97110; 97116; 97161; 97166; 97530; 97535; 99285-25; A9270; C1776; J0171; J0690; J0735; J1100; J1170; J1885; J2405; J2704; J2795; J3010; J3370; J7120

== ENCOUNTER → 2024-05-25 | Outpatient (CLI) | payer MEDICARE, OTHER ==
[~2024-05-25] MED LIST changes: +COENZYME Q10100 MG PO; +DOCU100 PO; +ELIQUIS2.5 MG PO; +OXYC10TA19 PO; +SENN187 PO
[2024-05-25 15:57] LABS: BASOPHILS ABSOLUTE AUTO 0.03 K/mm3 (0.00-0.23); BASOPHILS PERCENT AUTO 0 % (0-2); EOSINOPHILS ABSOLUTE AUTO 0.04 K/mm3 (0.00-0.68); EOSINOPHILS PERCENT AUTO 0 % (0-6); Hematocrit 35.7 % (33.0-51.0); Hemoglobin 12.3 g/dL (11.5-16.0); IMMATURE GRAN PERCENT AUTO 1 % (0-1); LYMPHOCYTES ABSOLUTE AUTO 1.47 K/mm3 (0.84-5.20); LYMPHOCYTES PERCENT AUTO 9 % (21-46); MONOCYTES ABSOLUTE AUTO 0.61 K/mm3 (0.16-1.47); MONOCYTES PERCENT AUTO 4 % (4-13); Mean Corpuscular HGB 32.7 pg (26.0-34.0); Mean Corpuscular HGB Conc 34.5 g/dL (31.5-36.5); Mean Corpuscular Volume 95 fL (80-100); Mean Platelet Volume 8.2 fL (9.1-12.4); NEUTROPHILS ABSOLUTE AUTO 13.66 K/mm3 (1.96-9.15); NEUTROPHILS PERCENT AUTO 85 % (41-73); Platelet Count 729 K/mm3 (150-400); RDW Coefficient Variation 14.2 % (11.7-14.2); RDW Standard Deviation 48.3 fL (35.1-46.3); Red Blood Cell Count 3.76 M/mm3 (3.80-5.20); White Blood Cell Count 16.01 K/mm3 (4.00-11.30)
[2024-05-25 16:09] LABS: Albumin, Blood 3.2 g/dL (3.4-5.0); Albumin/Globulin Ratio 0.7 (0.8-1.8); Bilirubin, Total 0.7 mg/dL (0.1-1.0); Bun/Creatinine Ratio 23.5 (12.0-20.0); Calcium, Blood 9.4 mg/dL (8.5-10.1); Creatinine, Blood 0.81 mg/dL (0.40-1.00); Globulin, Blood 4.7 g/dL (2.2-4.0); Potassium, Blood 3.7 mmol/L (3.5-5.5); Total Protein, Blood 7.9 g/dL (6.4-8.2)
== END | disposition home or self-care (01) ==
LOC: LAB SHORT 15:53 → LAB 15:53
PROVIDERS: Family Medicine
DX: J18.0 Bronchopneumonia, unspecified organism (principal)
CPT/HCPCS: 80053; 85025

== ENCOUNTER → 2024-05-26 | Outpatient (CLI) | payer MEDICARE, OTHER ==
[2024-05-26 15:31] LABS: BASOPHILS ABSOLUTE AUTO 0.04 K/mm3 (0.00-0.23); BASOPHILS PERCENT AUTO 0 % (0-2); EOSINOPHILS ABSOLUTE AUTO 0.11 K/mm3 (0.00-0.68); EOSINOPHILS PERCENT AUTO 1 % (0-6); Hematocrit 35.2 % (33.0-51.0); IMMATURE GRAN ABSOLUTE AUTO 0.18 K/mm3 (0.00-0.10); IMMATURE GRAN PERCENT AUTO 1 % (0-1); LYMPHOCYTES ABSOLUTE AUTO 2.25 K/mm3 (0.84-5.20); LYMPHOCYTES PERCENT AUTO 12 % (21-46); MONOCYTES ABSOLUTE AUTO 0.66 K/mm3 (0.16-1.47); MONOCYTES PERCENT AUTO 4 % (4-13); Mean Corpuscular HGB 32.3 pg (26.0-34.0); Mean Corpuscular HGB Conc 34.1 g/dL (31.5-36.5); Mean Corpuscular Volume 95 fL (80-100); Mean Platelet Volume 8.2 fL (9.1-12.4); NEUTROPHILS ABSOLUTE AUTO 15.31 K/mm3 (1.96-9.15); NEUTROPHILS PERCENT AUTO 83 % (41-73); Platelet Count 748 K/mm3 (150-400); RDW Standard Deviation 48.1 fL (35.1-46.3); Red Blood Cell Count 3.71 M/mm3 (3.80-5.20); White Blood Cell Count 18.55 K/mm3 (4.00-11.30)
== END ==
LOC: LAB SHORT 15:27 → LAB 15:27
PROVIDERS: Family Medicine
DX: J18.9 Pneumonia, unspecified organism (principal)
CPT/HCPCS: 85025

== ENCOUNTER → 2024-05-27 | Outpatient (CLI) | payer MEDICARE, OTHER ==
[2024-05-27 14:00] LABS: BASOPHILS ABSOLUTE AUTO 0.03 K/mm3 (0.00-0.23); BASOPHILS PERCENT AUTO 0 % (0-2); EOSINOPHILS ABSOLUTE AUTO 0.04 K/mm3 (0.00-0.68); EOSINOPHILS PERCENT AUTO 0 % (0-6); Hematocrit 34.5 % (33.0-51.0); Hemoglobin 11.8 g/dL (11.5-16.0); IMMATURE GRAN ABSOLUTE AUTO 0.11 K/mm3 (0.00-0.10); IMMATURE GRAN PERCENT AUTO 1 % (0-1); LYMPHOCYTES ABSOLUTE AUTO 3.42 K/mm3 (0.84-5.20); LYMPHOCYTES PERCENT AUTO 24 % (21-46); MONOCYTES ABSOLUTE AUTO 1.27 K/mm3 (0.16-1.47); MONOCYTES PERCENT AUTO 9 % (4-13); Mean Corpuscular HGB 33.1 pg (26.0-34.0); Mean Corpuscular HGB Conc 34.2 g/dL (31.5-36.5); Mean Corpuscular Volume 97 fL (80-100); Mean Platelet Volume 8.1 fL (9.1-12.4); NEUTROPHILS ABSOLUTE AUTO 9.42 K/mm3 (1.96-9.15); NEUTROPHILS PERCENT AUTO 66 % (41-73); Platelet Count 744 K/mm3 (150-400); RDW Coefficient Variation 14.4 % (11.7-14.2); RDW Standard Deviation 49.8 fL (35.1-46.3); Red Blood Cell Count 3.57 M/mm3 (3.80-5.20); White Blood Cell Count 14.29 K/mm3 (4.00-11.30)
[2024-05-27 14:09] LABS: Albumin, Blood 3.1 g/dL (3.4-5.0); Albumin/Globulin Ratio 0.8 (0.8-1.8); Bilirubin, Total 0.7 mg/dL (0.1-1.0); Bun/Creatinine Ratio 20.8 (12.0-20.0); Calcium, Blood 9.4 mg/dL (8.5-10.1); Creatinine, Blood 0.77 mg/dL (0.40-1.00); Globulin, Blood 4.1 g/dL (2.2-4.0); Potassium, Blood 3.3 mmol/L (3.5-5.5); Total Protein, Blood 7.2 g/dL (6.4-8.2)
== END ==
LOC: LAB SHORT 13:55 → LAB 13:55
PROVIDERS: Physician Assistant
DX: J18.9 Pneumonia, unspecified organism (principal)
CPT/HCPCS: 80053; 85025

== ENCOUNTER → 2024-05-28 | Outpatient (CLI) | payer MEDICARE, OTHER ==
[2024-05-28 14:24] LABS: BASOPHILS ABSOLUTE AUTO 0.03 K/mm3 (0.00-0.23); BASOPHILS PERCENT AUTO 0 % (0-2); EOSINOPHILS ABSOLUTE AUTO 0.09 K/mm3 (0.00-0.68); EOSINOPHILS PERCENT AUTO 1 % (0-6); Hemoglobin 12.3 g/dL (11.5-16.0); IMMATURE GRAN ABSOLUTE AUTO 0.17 K/mm3 (0.00-0.10); IMMATURE GRAN PERCENT AUTO 1 % (0-1); LYMPHOCYTES ABSOLUTE AUTO 2.07 K/mm3 (0.84-5.20); LYMPHOCYTES PERCENT AUTO 14 % (21-46); MONOCYTES ABSOLUTE AUTO 1.11 K/mm3 (0.16-1.47); MONOCYTES PERCENT AUTO 8 % (4-13); Mean Corpuscular HGB 33.1 pg (26.0-34.0); Mean Corpuscular HGB Conc 34.2 g/dL (31.5-36.5); Mean Corpuscular Volume 97 fL (80-100); Mean Platelet Volume 8.1 fL (9.1-12.4); NEUTROPHILS ABSOLUTE AUTO 11.02 K/mm3 (1.96-9.15); NEUTROPHILS PERCENT AUTO 76 % (41-73); Platelet Count 774 K/mm3 (150-400); RDW Coefficient Variation 14.6 % (11.7-14.2); RDW Standard Deviation 50.4 fL (35.1-46.3); Red Blood Cell Count 3.72 M/mm3 (3.80-5.20); White Blood Cell Count 14.49 K/mm3 (4.00-11.30)
[2024-05-28 14:28] LABS: Bun/Creatinine Ratio 26.9 (12.0-20.0); Calcium, Blood 9.7 mg/dL (8.5-10.1); Creatinine, Blood 0.78 mg/dL (0.40-1.00); Potassium, Blood 3.9 mmol/L (3.5-5.5)
== END ==
LOC: LAB 14:19 → LAB SHORT 14:19
PROVIDERS: Physician Assistant
DX: J18.9 Pneumonia, unspecified organism (principal)
CPT/HCPCS: 80048; 85025

== ENCOUNTER → 2024-06-04 | Outpatient (CLI) | payer MEDICARE, OTHER ==
[2024-06-04 12:53] LABS: BASOPHILS ABSOLUTE AUTO 0.04 K/mm3 (0.00-0.23); BASOPHILS PERCENT AUTO 0 % (0-2); EOSINOPHILS ABSOLUTE AUTO 0.13 K/mm3 (0.00-0.68); EOSINOPHILS PERCENT AUTO 1 % (0-6); Hematocrit 38.4 % (33.0-51.0); Hemoglobin 12.8 g/dL (11.5-16.0); IMMATURE GRAN ABSOLUTE AUTO 0.08 K/mm3 (0.00-0.10); IMMATURE GRAN PERCENT AUTO 1 % (0-1); LYMPHOCYTES ABSOLUTE AUTO 2.47 K/mm3 (0.84-5.20); LYMPHOCYTES PERCENT AUTO 27 % (21-46); MONOCYTES ABSOLUTE AUTO 0.96 K/mm3 (0.16-1.47); MONOCYTES PERCENT AUTO 10 % (4-13); Mean Corpuscular HGB 33.2 pg (26.0-34.0); Mean Corpuscular HGB Conc 33.3 g/dL (31.5-36.5); Mean Corpuscular Volume 100 fL (80-100); Mean Platelet Volume 8.3 fL (9.1-12.4); NEUTROPHILS ABSOLUTE AUTO 5.51 K/mm3 (1.96-9.15); NEUTROPHILS PERCENT AUTO 60 % (41-73); Platelet Count 525 K/mm3 (150-400); RDW Coefficient Variation 15.1 % (11.7-14.2); RDW Standard Deviation 54.9 fL (35.1-46.3); Red Blood Cell Count 3.86 M/mm3 (3.80-5.20); White Blood Cell Count 9.19 K/mm3 (4.00-11.30)
[2024-06-04 13:03] LABS: Albumin, Blood 3.7 g/dL (3.4-5.0); Albumin/Globulin Ratio 1.1 (0.8-1.8); Bilirubin, Total 1.1 mg/dL (0.1-1.0); Bun/Creatinine Ratio 20.7 (12.0-20.0); Calcium, Blood 9.9 mg/dL (8.5-10.1); Creatinine, Blood 0.92 mg/dL (0.40-1.00); Globulin, Blood 3.5 g/dL (2.2-4.0); Potassium, Blood 3.6 mmol/L (3.5-5.5); Total Protein, Blood 7.2 g/dL (6.4-8.2)
== END ==
LOC: LAB SHORT 12:48 → LAB 12:48
PROVIDERS: Physician Assistant
DX: R06.00 Dyspnea, unspecified (principal)
CPT/HCPCS: 80053; 83880; 84484; 85025

== ENCOUNTER → 2024-06-17 | Outpatient (CLI) | payer MEDICARE, OTHER ==
[2024-06-17 17:01] LABS: Creatinine, Urine Random 98.5 mg/dL (27.00-270.00); Microalb/Creat Ratio UR, Rand 19.797 mg/g (0.000-30.000); Microalbumin, Random Urine 19.5 mg/L (0.000-20.000)
== END ==
LOC: LAB SHORT 13:35 → LAB 13:35
PROVIDERS: Physician Assistant
DX: N18.30 Chronic kidney disease, stage 3 unspecified (principal)
CPT/HCPCS: 82043; 82570